=== PATIENT | male | born 1995 | race American Indian/Alaskan Native ===

== ENCOUNTER 2019-04-22 16:29 | Emergency (ER) | payer BC, OTHER ==
--- NOTE | 2019-04-22 16:38 | Emergency Department Report ---
Chief Complaint: Dyspnea/Respdistress Stated Complaint: DIFFICULTY BREATHING/ANIXETY Time Seen by Provider: 04/22/19 16:36 - HPI History of Present Illness: This is a 23 y.o. male that presents to the ER with SOB, headache, and chest tightness for a few hours. PMH HTN Patient report feeling weak for a few days. He reports losing inhaler a few days ago. Current smoker and marijuana smoker. - Exam Vital Signs: Vital Signs 04/22/19 16:37 Temperature 97.6 F Pulse Rate 70 Respiratory 16 Rate Blood Pressure 137/75 O2 Sat by Pulse 99 Oximetry MSE screening note: Focused history and physical exam performed. Due to findings the following was ordered: This initial assessment/diagnostic orders/clinical plan/treatment(s) is/are subject to change based on patient's health status, clinical progression and re- assessment by fellow clinical providers in the ED. Further treatment and workup at subsequent clinical providers discretion. Patient/guardians urged not to elope from the ED as their condition may be serious if not clinically assessed and managed. Initial orders include: 1- Patient sent to [facility] for further evaluation and treatment ED Disposition for MSE Condition: Stable
[2019-04-22] MEDS ORDERED: XANAX PO STA (18:55)
[2019-04-22] MEDS ORDERED: DUONEB *Not for PRN Use IH ONE (18:55)
--- NOTE | 2019-04-22 19:24 | Emergency Department Report ---
<JULIA ELDRIDGE - Last Filed: 04/22/19 21:21> ED General Adult HPI - General Chief complaint: Dyspnea/Respdistress Stated complaint: DIFFICULTY BREATHING/ANIXETY Time Seen by Provider: 04/22/19 16:36 - Related Data Previous Rx's Medication Instructions Recorded Last Taken Type ALBUTEROL Inhaler (OR & NICU) 1 puff IH Q4-6H PRN #1 inha 04/22/19 Unknown Rx [ProAir HFA Inhaler] Allergies Allergy/AdvReac Type Severity Reaction Status Date / Time No Known Allergies Allergy Unverified 04/22/19 16:32 ED Past Medical Hx - Medications Home Medications: Home Medications Medication Instructions Recorded Confirmed Last Taken Type ALBUTEROL Inhaler (OR & NICU) 1 puff IH Q4-6H PRN #1 inha 04/22/19 Unknown Rx [ProAir HFA Inhaler] ED Medical Decision Making - Lab Data Result diagrams: 04/22/19 19:09 - Medical Decision Making I evaluated this patient along side my colleague Mr. Alexander Suresh Mr. Sahu is a very pleasant 23-year-old male who has a history of "severe anxiety" and chronic bronchitis". He presents with shortness of breath and chest tightness. My colleague detected wheezing on exam. I suspect reactive airway disease as the cause of his chest pain and dyspnea as well as a component of anxiety. He was recently evaluated 2 months ago for similar symptoms at [facility]. Dx: bronchitis. No indication of pulmonary embolism pneumothorax pericarditis on clinical presentation. I strongly recommended cessation of tobacco and marijuana i nhalation. I recommended discharge with steroids and antibiotics. Also recommended using his home inhaler. Mr. Sahu requested medications for anxiety. Xanax did help. I recommended obtaining primary care instead. ED Disposition Clinical Impression: SOB (shortness of breath), Anxiety, Chest pain, Cannabis use, unspecified with anxiety disorder Disposition: DC-01 TO HOME OR SELFCARE Condition: Stable Instructions: Chest Pain (ED), Cannabis Abuse (ED), Generalized Anxiety Disorder (ED) Referrals: LINDSAY [facility]ARRETTM[facility]BR[facility] MD [place] [Primary Care Provider] - 3-5 Days [facility] [Provider Group] - 3-5 Days <LOI SURESH - Last Filed: 04/22/19 22:27> ED General Adult HPI - General Source: patient, EMS Mode of arrival: Ambulatory Limitations: No Limitations - History of Present Illness Initial comments: 23-year-old Stateless male with a reported past medical history of hypertension and asthma reports having some sensations of shortness of breath, popping ears and some dull headache for the last couple days. Dr. Ybarramo [facility] Day with his family. He was cleaning up and had a dull headache and [place] and Aleve bottle that was on the counter with 2 remaining pills. He states he took the 2 remaining pills to resolve his headache and, after which reported having a feeling of being "high". Also having some mild shortness of breath and a dull achy to 2 pain to his chest that has been waxing and waning in the nonprogressi ve fashion. However, there is no coughing, congestion, hemoptysis, hematemesis, hematochezia. No palpitations or syncope. He denies any trauma. Also has history of anxiety and without of his benzos -: days(s) Location: chest Radiation: non-radiation Quality: dull Consistency: constant Improves with: none Worsens with: none Associated Symptoms: denies: chest pain, fever/chills, loss of appetite, malaise, nausea/vomiting, shortness of breath, syncope, weakness ED Review of Systems ROS: Stated complaint: DIFFICULTY BREATHING/ANIXETY Other details as noted in HPI Constitutional: denies: chills, fever Eyes: denies: eye pain, eye discharge, vision change ENT: denies: ear pain, throat pain Respiratory: denies: cough, shortness of breath, wheezing Cardiovascular: denies: chest pain, palpitations Endocrine: no symptoms reported Gastrointestinal: denies: abdominal pain, nausea, diarrhea Genitourinary: denies: urgency, dysuria Musculoskeletal: denies: back pain, joint swelling, arthralgia Skin: denies: rash, lesions Neurological: denies: headache, weakness, paresthesias Psychiatric: denies: anxiety, depression Hematological/Lymphatic: denies: easy bleeding, easy bruising ED Past Medical Hx - Past Medical History Hx Hypertension: Yes Hx Psychiatric Treatment: Yes (anxiety) - Surgical History Past Surgical History?: No - Social History Smoking Status: Current Every Day Smoker Substance Use Type: Alcohol, Marijuana ED Physical Exam - General Limitations: No Limitations General appearance: alert, in no apparent distress - Head Head exam: Present: atraumatic, normocephalic - Eye Eye exam: Present: normal appearance, PERRL - ENT ENT exam: Present: normal exam, mucous membranes moist - Neck Neck exam: Present: normal inspection, full ROM - Respiratory Respiratory exam: Present: normal lung sounds bilaterally, decreased breath sounds. Absent: respiratory distress, rales, rhonchi, chest wall tenderness, accessory muscle use - Cardiovascular Cardiovascular Exam: Present: regular rate, normal rhythm. Absent: systolic murmur, diastolic murmur, rubs, gallop - GI/Abdominal GI/Abdominal exam: Present: soft, normal bowel sounds - Rectal Rectal exam: Present: deferred - Extremities Exam Extremities exam: Present: normal inspection - Back Exam Back exam: Present: normal inspection - Neurological Exam Neurological exam: Present: alert, oriented X3, CN II-XII intact - Psychiatric Psychiatric exam: Present: normal affect, normal mood, anxious - Skin Skin exam: Present: warm, dry, intact, normal color. Absent: rash ED Course Vital Signs 04/22/19 04/22/19 16:37 20:22 Temperature 97.6 F 97.7 F Pulse Rate 70 68 Respiratory 16 22 Rate Blood Pressure 137/75 Blood Pressure 139/84 [Right] O2 Sat by Pulse 99 Oximetry - Consultations Consultation #1: 04/22/19 22:[address] Eldridge whom also had [id number] with Mr. Sahu. Agree with the plan of care. EKG was added. EKG showed a sinus bradycardia, 58 beats per minutes. No ST segment depression no J-point elevation. No sustained ventricular arrhythmias. ED Medical Decision Making - Lab Data Result diagrams: 04/22/19 19:09 - EKG Data EKG shows normal: sinus rhythm Rate: bradycardia - EKG Data Interpretation: normal EKG (chest x-ray was normal. No acute processes) - Radiology Data Radiology results: report reviewed Critical care attestation.: If time is entered above; I have spent that time in minutes in the direct care of this critically ill patient, excluding procedure time. ED Disposition Is pt being admited?: No Does the pt Need Aspirin: No
[2019-04-22 19:29] LABS: Basophils # (Auto) 0.1 K/mm3 (0.0-0.1); Basophils % (Auto) 0.5 % (0.0-1.8); Eosinophils # (Auto) 0.1 K/mm3 (0.0-0.4); Eosinophils % (Auto) 0.6 % (0.0-4.3); Hematocrit 41.8 % (35.5-45.6); Hemoglobin 14.5 gm/dl (11.8-15.2); Lymphocytes # (Auto) 1.3 K/mm3 (1.2-5.4); Lymphocytes % (Auto) 13.4 % (13.4-35.0); Mean Corpuscular HGB Conc 35 % (32-34); Mean Corpuscular Volume 94 fl (84-94); Monocytes # (Auto) 0.8 K/mm3 (0.0-0.8); Monocytes % (Auto) 8.7 % (0.0-7.3); Platelet Count 194 K/mm3 (140-440); Red Blood Count 4.44 M/mm3 (3.65-5.03); Red Cell Distribution Width 13.2 % (13.2-15.2)
[2019-04-22 21:12] LABS: Amphetamine Screen,Urine PRESUMPTIVE NEGATIVE; Benzodiazepines Screen,Urine PRESUMPTIVE NEGATIVE; Cocaine Screen,Urine PRESUMPTIVE NEGATIVE; Methadone Screen,Urine PRESUMPTIVE NEGATIVE; Opiate Screen,Urine PRESUMPTIVE NEGATIVE
--- NOTE | 2019-04-22 21:16 | XRay Report ---
PROCEDURE: XR CHEST ROUTINE 2V TECHNIQUE: PA and lateral chest radiographs were obtained. HISTORY: sob and bs to right COMPARISONS: None. FINDINGS: Heart: Normal. Mediastinum/Vessels: Normal. Lungs/Pleural space: Lungs are expanded and clear. There are no infiltrates, effusions or pneumothor aces.. Bony thorax: No acute osseous abnormality. IMPRESSION: Normal examination. This document is electronically signed by Ariel Pollock MD., Apr 22 2019 09:14:51 PM ET
[2019-04-22 21:28] LABS: Cannabinoid Screen,Urine PRESUMPTIVE POSITIVE
[2019-04-22 23:07] VITALS: BP 131/79
== END 2019-04-22 23:08 | disposition home or self-care (01) ==
LOC: ED 16:29
DX: J42 Unspecified chronic bronchitis (principal); F41.9 Anxiety disorder, unspecified; F12.10 Cannabis abuse, uncomplicated; I10 Essential (primary) hypertension
CPT/HCPCS: 36415; 71046; 80307; 85025; 85379; 93005; 93010; 94640

== ENCOUNTER 2019-07-13 16:59 | Emergency (ER) | payer SELFPAY ==
[2019-07-13] MEDS ORDERED: TORADOL IM ONE (17:47)
--- NOTE | 2019-07-13 17:47 | Event Note ---
ED Screening Note Date of service: 07/13/19 Time: 17:42 ED Screening Note: 24 male comes for urinary retention and constipation for days. Reports that he has gone cold turkey off of oxycodone 100 mg. PMH of HTN and chronic bronchitis. Patient reports he feels that he is in withdrawal. This initial assessment/diagnostic orders/clinical plan/treatment(s) is/are subject to change based on patients health status, clinical progression and re- assessment by fellow clinical providers in the ED. Further treatment and workup at subsequent clinical providers discretion. Patient/guardian urged not to elope from the ED as their condition may be serious if not clinically assessed and managed. Initial orders include:
[2019-07-13] MEDS ORDERED: NACL 0.9% 1000 ML 1,000 ML IV ONE (17:51)
[2019-07-13 18:16] LABS: Basophils % (Auto) 0.2 % (0.0-1.8); Eosinophils % (Auto) 0.1 % (0.0-4.3); Hematocrit 45.8 % (35.5-45.6); Hemoglobin 15.7 gm/dl (11.8-15.2); Lymphocytes # (Auto) 1.5 K/mm3 (1.2-5.4); Lymphocytes % (Auto) 13.1 % (13.4-35.0); Mean Corpuscular HGB Conc 34 % (32-34); Mean Corpuscular Volume 93 fl (84-94); Monocytes # (Auto) 0.8 K/mm3 (0.0-0.8); Monocytes % (Auto) 7.1 % (0.0-7.3); Platelet Count 223 K/mm3 (140-440); Red Blood Count 4.95 M/mm3 (3.65-5.03); Red Cell Distribution Width 12.9 % (13.2-15.2)
[2019-07-13 18:44] LABS: Alanine Aminotransferase 19 units/L (7-56); Albumin 4.8 g/dL (3.9-5); BUN/Creatinine Ratio 10; Blood Urea Nitrogen 10 mg/dL (9-20); Calcium 9.7 mg/dL (8.4-10.2); Hemolysis Index 2
--- NOTE | 2019-07-13 19:20 | Cat Scan Report ---
CT abdomen pelvis wo con INDICATION: MAIN: urinary retention and kidney pain. 3 days. TECHNIQUE: All CT scans at this location are performed using CT dose reduction for ALARA by means of automated e xposure control. COMPARISON: None available. FINDINGS: Lung bases are clear. Liver, gallbladder, spleen, pancreas, kidneys and adrenals are negative on this noncontrast exam. Pelvis Urinary bladder and distal ureters are unremarkable. Bladder is not abnormally distended. Kidneys are not hydronephrotic. Normal appendix. No free fluid or inflammation. IMPRESSION: 1. Negative study. Kidneys and urinary bladder appear unremarkable. Signer Name: Marcus Morris MD Signed: 07/13/2019 7:15 PM Workstation Name: [id number]
[2019-07-13 20:16] LABS: Bilirubin,Urine NEG (Negative); Blood,Urine NEG (Negative); Color,Urine Yellow (Yellow); Mucus,Urine 3+ /HPF; Protein,Urine <15 mg/dL mg/dL (Negative)
[2019-07-13 20:19] LABS: Amphetamine Screen,Urine PRESUMPTIVE NEGATIVE; Benzodiazepines Screen,Urine PRESUMPTIVE NEGATIVE; Cocaine Screen,Urine PRESUMPTIVE NEGATIVE; Methadone Screen,Urine PRESUMPTIVE NEGATIVE; Opiate Screen,Urine PRESUMPTIVE NEGATIVE
[2019-07-13 20:38] LABS: Cannabinoid Screen,Urine PRESUMPTIVE POSITIVE
--- NOTE | 2019-07-13 20:41 | Emergency Department Report ---
ED Male HPI - General Chief complaint: Urogenital-Male Stated complaint: UNABLE TO USE RESTROOM/CONSTIPATION Time Seen by Provider: 07/13/19 17:42 Source: patient Mode of arrival: Ambulatory Limitations: No Limitations - History of Present Illness Initial comments: Patient is a 24-year-old male presents to the emergency room with complaints of painful urination that began 2 days ago. States he has difficulty urinating secondary to pain. He has also had constipation for about 4-5 days. Patient states he has had some right flank pain and suprapubic abdominal discomfort. He denies any vomiting, diarrhea, fever, penile discharge, testicular edema, testicular pain. He has a past medical history of high blood pressure. He denies any allergies to medications. - Related Data Previous Rx's Medication Instructions Recorded Last Taken Type ALBUTEROL Inhaler (OR & NICU) 1 puff IH Q4-6H PRN #1 inha 04/22/19 Unknown Rx [ProAir HFA Inhaler] Docusate Sodium [Colace] 100 mg PO BID PRN #14 capsule 07/13/19 Unknown Rx Polyethylene Glycol 3350 [Miralax] 7 gm PO DAILY PRN #1 powder 07/13/19 Unknown Rx Allergies Allergy/AdvReac Type Severity Reaction Status Date / Time No Known Allergies Allergy Unverified 04/22/19 16:32 ED Review of Systems ROS: Stated complaint: UNABLE TO USE RESTROOM/CONSTIPATION Other details as noted in HPI Comment: All other systems reviewed and negative ED Past Medical Hx - Past Medical History Previous Medical History?: Yes Hx Hypertension: Yes Hx Psychiatric Treatment: Yes (anxiety) - Surgical History Past Surgical History?: No - Social History Smoking Status: Current Every Day Smoker Substance Use Type: Alcohol, Marijuana - Medications Home Medications: Home Medications Medication Instructions Recorded Confirmed Last Taken Type ALBUTEROL Inhaler (OR & NICU) 1 puff IH Q4-6H PRN #1 inha 04/22/19 Unknown Rx [ProAir HFA Inhaler] Docusate Sodium [Colace] 100 mg PO BID PRN #14 capsule 07/13/19 Unknown Rx Polyethylene Glycol 3350 [Miralax] 7 gm PO DAILY PRN #1 powder 07/13/19 Unknown Rx ED Physical Exam - General Limitations: No Limitations General appearance: alert, in no apparent distress - Head Head exam: Present: atraumatic, normocephalic - Eye Eye exam: Present: normal appearance - ENT ENT exam: Present: mucous membranes moist - Respiratory Respiratory exam: Present: normal lung sounds bilaterally. Absent: respiratory distress, wheezes, rales, rhonchi, stridor, chest wall tenderness, accessory muscle use, decreased breath sounds, prolonged expiratory - Cardiovascular Cardiovascular Exam: Present: regular rate, normal rhythm, normal heart sounds. Absent: systolic murmur, diastolic murmur, rubs, gallop - GI/Abdominal GI/Abdominal exam: Present: soft, normal bowel sounds. Absent: distended, tenderness, guarding, rebound, rigid - Neurological Exam Neurological exam: Present: alert, oriented X3 - Psychiatric Psychiatric exam: Present: normal affect, normal mood - Skin Skin exam: Present: warm, dry, intact ED Course Vital Signs 07/13/19 07/13/19 17:44 21:22 Temperature 98.2 F 98.3 F Pulse Rate 65 89 Respiratory 18 18 Rate Blood Pressure 139/67 Blood Pressure 132/88 [Right] O2 Sat by Pulse 100 100 Oximetry ED Medical Decision Making - Lab Data Result diagrams: 07/13/19 17:57 07/13/19 17:56 Lab Results 07/13/19 07/13/19 07/13/19 Range/Units 17:56 17:57 19:43 WBC 11.1 H (4.5-11.0) K/mm3 RBC 4.95 (3.65-5.03) M/mm3 Hgb 15.7 H (11.8-15.2) gm/dl Hct 45.8 H (35.5-45.6) % MCV 93 (84-94) fl MCH 32 (28-32) pg MCHC 34 (32-34) % RDW 12.9 L (13.2-15.2) % Plt Count 223 (140-440) K/mm3 Lymph % (Auto) 13.1 L (13.4-35.0) % [place] % (Auto) 7.1 (0.0-7.3) % Eos % (Auto) 0.1 (0.0-4.3) % Baso % (Auto) 0.2 (0.0-1.8) % Lymph # 1.5 (1.2-5.4) K/mm3 [place] # 0.8 (0.0-0.8) K/mm3 Eos # 0.0 (0.0-0.4) K/mm3 Baso # 0.0 (0.0-0.1) K/mm3 Seg Neutrophils % 79.5 H (40.0-70.0) % Seg Neutrophils # 8.9 H (1.8-7.7) K/mm3 Sodium 140 (137-145) mmol/L Potassium 3.9 (3.6-5.0) mmol/L Chloride 101.5 (98-107) mmol/L Carbon Dioxide 25 (22-30) mmol/L Anion Gap 17 mmol/L BUN 10 (9-20) mg/dL Creatinine 1.0 (0.8-1.5) mg/dL Estimated GFR > 60 ml/min BUN/Creatinine Ratio 10 % Glucose 108 H (75-100) mg/dL Calcium 9.7 (8.4-10.2) mg/dL Total Bilirubin 0.50 (0.1-1.2) mg/dL AST 18 (5-40) units/L ALT 19 (7-56) units/L Alkaline Phosphatase 56 (35-129) units/L Total Protein 7.7 (6.3-8.2) g/dL Albumin 4.8 (3.9-5) g/dL Albumin/Globulin Ratio 1.7 % Urine Color Yellow (Yellow) Urine Turbidity Clear (Clear) Urine pH 7.0 (5.0-7.0) Ur Specific [place] 1.026 (1.003-1.030) Urine Protein <15 mg/dl (Negative) mg/dL Urine Glucose (UA) Neg (Negative) mg/dL Urine Ketones Tr (Negative) mg/dL Urine Blood Neg (Negative) Urine Nitrite Neg (Negative) Urine Bilirubin Neg (Negative) Urine Urobilinogen 4.0 (<2.0) mg/dL Ur Leukocyte Esterase Tr (Negative) Urine WBC (Auto) 10.0 H (0.0-6.0) /HPF Urine RBC (Auto) 2.0 (0.0-6.0) /HPF U Epithel Cells (Auto) 1.0 (0-13.0) /HPF Urine Mucus 3+ /HPF Urine Opiates Screen Urine Methadone Screen Ur Barbiturates Screen Ur Phencyclidine Scrn Ur Amphetamines Screen U Benzodiazepines Scrn Urine Cocaine Screen U Marijuana (THC) Screen Drugs of Abuse Note 07/13/19 Range/Units 19:43 WBC (4.5-11.0) K/mm3 RBC (3.65-5.03) M/mm3 Hgb (11.8-15.2) gm/dl Hct (35.5-45.6) % MCV (84-94) fl MCH (28-32) pg MCHC (32-34) % RDW (13.2-15.2) % Plt Count (140-440) K/mm3 Lymph % (Auto) (13.4-35.0) % [place] % (Auto) (0.0-7.3) % Eos % (Auto) (0.0-4.3) % Baso % (Auto) (0.0-1.8) % Lymph # (1.2-5.4) K/mm3 [place] # (0.0-0.8) K/mm3 Eos # (0.0-0.4) K/mm3 Baso # (0.0-0.1) K/mm3 Seg Neutrophils % (40.0-70.0) % Seg Neutrophils # (1.8-7.7) K/mm3 Sodium (137-145) mmol/L Potassium (3.6-5.0) mmol/L Chloride (98-107) mmol/L Carbon Dioxide (22-30) mmol/L Anion Gap mmol/L BUN (9-20) mg/dL Creatinine (0.8-1.5) mg/dL Estimated GFR ml/min BUN/Creatinine Ratio % Glucose (75-100) mg/dL Calcium (8.4-10.2) mg/dL Total Bilirubin (0.1-1.2) mg/dL AST (5-40) units/L ALT (7-56) units/L Alkaline Phosphatase (35-129) units/L Total Protein (6.3-8.2) g/dL Albumin (3.9-5) g/dL Albumin/Globulin Ratio % Urine Color (Yellow) Urine Turbidity (Clear) Urine pH (5.0-7.0) Ur Specific [place] (1.003-1.030) Urine Protein (Negative) mg/dL Urine Glucose (UA) (Negative) mg/dL Urine Ketones (Negative) mg/dL Urine Blood (Negative) Urine Nitrite (Negative) Urine Bilirubin (Negative) Urine Urobilinogen (<2.0) mg/dL Ur Leukocyte Esterase (Negative) Urine WBC (Auto) (0.0-6.0) /HPF Urine RBC (Auto) (0.0-6.0) /HPF U Epithel Cells (Auto) (0-13.0) /HPF Urine Mucus /HPF Urine Opiates Screen Presumptive negative Urine Methadone Screen Presumptive negative Ur Barbiturates Screen Presumptive negative Ur Phencyclidine Scrn Presumptive negative Ur Amphetamines Screen Presumptive negative U Benzodiazepines Scrn Presumptive negative Urine Cocaine Screen Presumptive negative U Marijuana (THC) Screen Presumptive positive Drugs of Abuse Note Disclamer - Radiology Data Radiology results: report reviewed, image reviewed CT abdomen pelvis wo con INDICATION: MAIN: urinary retention and kidney pain. 3 days. TECHNIQUE: All CT scans at this location are performed using CT dose reduction for ALARA by means of automated exposure control. COMPARISON: None available. FINDINGS: Lung bases are clear. Liver, gallbladder, spleen, pancreas, kidneys and adrenals are negative on this noncontrast exam. Pelvis Urinary bladder and distal ureters are unremarkable. Bladder is not abnormally distended. Kidneys are not hydronephrotic. Normal appendix. No free fluid or inflammation. IMPRESSION: 1. Negative study. Kidneys and urinary bladder appear unremarkable. Signer Name: Marcus Morris MD Signed: 07/13/2019 7:15 PM Workstation Name: [id number] Transcribed By: TM Dictated By: Marcus Morris MD Electronically Authenticated By: Marcus Morris MD Signed Date/Time: 07/13/19 191 - Medical Decision Making Patient is a 24-year-old male presents to the emergency room with complaints of painful urination that began 2 days ago. States he has difficulty urinating secondary to pain. He has also had constipation for about 4-5 days. Patient states he has had some right flank pain and suprapubic abdominal discomfort. He denies any vomiting, diarrhea, fever, penile discharge, testicular edema, testicular pain. He has a past medical history of high blood pressure. He denies any allergies to medications. VSS. no abdominal tenderness on exam, normal bowel sounds. labs are stable. UA shows WBCs and leukocyte esterase. UDS positive for THC. CT abdomen/pelvis without contrast shows Negative study. Kidneys and urinary bladder appear unremarkable. appears to have some constipation present on the CT. due to pt being a young male, WBCs and Leukocyte esterase most likely due to STD, pt given empiric treatment for G/C. given ceftriaxone and azithromycin while in the ED. pt given prescriptions for miralax and colace. advised pt to please check back in medical records in one week for results of your tests. take medication as prescribed. Drink plenty of fluids. Abstain from sexual intercourse for 10 days. Please have partner tested and treated as well. Please be seen by the health department or a primary care clinic for further STD testing. Return to the emergency room for any new or worsening symptoms. - Differential Diagnosis STD, UTI, nephrolithiasis, BPH, prostatitis Critical care attestation.: If time is entered above; I have spent that time in minutes in the direct care of this critically ill patient, excluding procedure time. ED Disposition Clinical Impression: Painful urination, Urinary retention Constipation Qualifiers: Constipation type: unspecified constipation type Qualified Code(s): K59.00 - Constipation, unspecified Disposition: TO HOME OR SELFCARE Is pt being admited?: No Does the pt Need Aspirin: No Condition: Stable Instructions: Constipation (ED), Sexually Transmitted Diseases (ED), Safe Sex (ED), Dysuria (ED) Additional Instructions: Please check back in medical records in one week for results of your tests. take medication as prescribed. Drink plenty of fluids. Abstain from sexual intercourse for 10 days. Please have partner tested and treated as well. Please be seen by the health department or a primary care clinic for further STD testing. Return to the emergency room for any new or worsening symptoms. Prescriptions: Docusate Sodium [Colace] 100 mg PO BID PRN #14 capsule PRN Reason: constipation Polyethylene Glycol 3350 [Miralax] 7 gm PO DAILY PRN #1 powder PRN Reason: constipation Referrals: VINCENT VILAL MD [Primary Care Provider] - 2-3 Days [facility] [Outside] - 2-3 Days Time of Disposition: 20:40 Print Language: SERBIAN
[2019-07-13] MEDS ORDERED: ROCEPHIN IM ONE (20:43)
[2019-07-13] MEDS ORDERED: ZITHROMAX PO ONE (20:43)
[2019-07-13] MEDS ORDERED: XYLOCAINE 1% MPF 5 mL INFILTRATI ONE (20:43)
[2019-07-13 21:22] VITALS: BP 132/88
== END 2019-07-13 21:23 | disposition home or self-care (01) ==
LOC: ED 16:59
DX: R33.9 Retention of urine, unspecified (principal); K59.00 Constipation, unspecified; R30.0 Dysuria; Z79.899 Other long term (current) drug therapy
CPT/HCPCS: 36415; 74176; 80053; 80307; 81001; 85025; 87086; 87591; 96372; 99284; J0696; J1885; J7030